=== PATIENT | female | born 1965 | race African-American/Black ===

== ENCOUNTER → 2016-05-23 | Outpatient (CLI) | payer BC ==
[2014-07-20 09:25] VITALS: BP 112/80
[~2016-05-23] MED LIST: LOSA1TAB18 PO
--- NOTE | 2016-05-23 08:33 | KCIC ---
PROCEDURE Bilateral digital screening mammogram. HISTORY 50-year-old female presents for screening mammography. TECHNIQUE Full field digital craniocaudal and mediolateral oblique views of both breasts are obtained. Computer-aided detection is applied. COMPARISON 10/06/2013 FINDINGS Breast parenchymal composition: Level A - Mostly fat. There is no new suspicious mass, calcification or architectural distortion within either breast. There are multiple benign calcifications bilaterally. IMPRESSION BI-RADS category 2: Benign finding. Annual mammography is recommended. Mammography is not 100% sensitive in detecting breast cancer. Therefore, a self breast exam and a clinical breast exam are very important. A negative mammogram does not negate a clinically suspicious finding and should not result in a delay in biopsying a clinically suspicious abnormality. This patient's information has been entered into a reminder system for the patient to be notified with the results of this examination and a target date for her next mammograms. Electronically signed by: Anaid Shukla (May 23, 2016 08:31:32)
== END | disposition home or self-care (01) ==
LOC: KCIC MAMMO 07:42
PROVIDERS: ATTEND Obstetrics & Gynecology
DX: Z12.31 Encounter for screening mammogram for malignant neoplasm of breast (principal)
CPT/HCPCS: G0202; 77067